=== PATIENT | female | born 1970 | race Hispanic/Latino ===

== ENCOUNTER 2022-06-01 10:28 | Outpatient (CLI) | payer BC ==
[~2022-06-01 10:28] MED LIST: Iopamidol 370 76% 100 ML VIAL ONE
== END 2022-06-01 10:29 | disposition home or self-care (01) ==
LOC: BICCT 10:28
PROVIDERS: ATTEND Physician Assistant Medical
DX: K58.1 Irritable bowel syndrome with constipation (principal); R10.9 Unspecified abdominal pain; N13.30 Unspecified hydronephrosis; N28.9 Disorder of kidney and ureter, unspecified; N83.202 Unspecified ovarian cyst, left side
CPT/HCPCS: 74177; Q9967

== ENCOUNTER 2022-11-09 13:13 | Outpatient (CLI) | payer BC ==
[2022-11-09 15:06] LABS: #Eosinphils 0.2 10x3/uL (0.0-0.5); #Monocytes 0.3 10x3/uL (0.0-1.1); #Neutrophils 3.1 10x3/uL (1.5-8.4); %Basophils 0.7 % (0.0-2.0); %Eosinophils 3.4 % (0.0-6.0); %Lymphocytes 35.7 % (18.0-47.0); %Monocytes 5.2 % (0.0-10.0); %Neutrophils 54.5 % (40.0-75.0); Mean Corpuscular HGB CONC 32.7 g/dL (32.0-36.0); Mean Corpuscular Hemoglobin 28.2 pg (27.0-33.0); Mean Corpuscular Volume 86.4 fl (81.6-98.3); Mean Platelet Volume 10.9 fl (7.4-10.4); Platelet Count 252 10x3/uL (150-450); RBC Distribution Width 14.1 % (11.5-14.5); Red Blood Cell (RBC) Count 4.25 10x6/uL (3.90-5.03); White Blood Cell (WBC) Count 5.6 10x3/uL (3.5-10.5)
[2022-11-09 15:36] LABS: ALT (SGPT) 20 U/L (8-55); AST (SGOT) 21 U/L (5-34); Albumin 4.2 g/dL (3.5-5.0); Alkaline Phosphatase 74 U/L (40-110); Anion Gap 13 mmol/L (10-20); BUN (Urea Nitrogen) 15 mg/dL (9.8-20.1); Bilirubin, Total 0.3 mg/dL (0.2-1.2); Calc. Creatinine Clearance 0 mL/min (70-130); Calcium 8.8 mg/dL (7.8-10.44); Carbon Dioxide 27 mmol/L (22-29); Chloride 104 mmol/L (98-107); Estimated GFR 104; Glucose 102 mg/dL (70-105); Potassium 3.7 mmol/L (3.5-5.1); Protein, Total 7.2 g/dL (6.0-8.3); Sodium 140 mmol/L (136-145)
== END 2022-11-09 13:14 | disposition home or self-care (01) ==
LOC: LABBT 13:13
PROVIDERS: ATTEND Surgery
DX: Z01.818 Encounter for other preprocedural examination (principal); K64.9 Unspecified hemorrhoids
CPT/HCPCS: 80053; 85025; 93005; 93010

== ENCOUNTER 2022-11-14 07:30 | Day surgery (SDC) | payer BC ==
[2022-11-11 14:05] VITALS: BMI 26.9
[2022-11-14] MEDS ORDERED: Bupivacaine/Epinephrine 0.25% 30 ML VIAL ONE (10:30)
[2022-11-14] MEDS ORDERED: SUGAMMADEX SODIUM 200 MG/2 ML VIAL ONE (10:36)
[2022-11-14] MEDS ORDERED: Sodium Chloride 0.9% 100 ML ONE (10:36)
[2022-11-14] MEDS ORDERED: Fentanyl 250 MCG/5 ML VIAL ONE (10:36)
[2022-11-14] MEDS ORDERED: CEFAZOLIN 2 GM VIAL ONE (10:36)
[2022-11-14] MEDS ORDERED: Rocuronium Bromide 10 MG/ML (10ML VIAL) ONE (10:50)
[2022-11-14] MEDS ORDERED: Ketorolac Tromethamine 30 MG/ML VIAL ONE (10:50)
[2022-11-14] MEDS ORDERED: PROPOFOL 200 MG/20 ML VIAL ONE (10:50)
[2022-11-14] MEDS ORDERED: Dexamethasone 20 MG/5 ML VIAL ONE (10:50)
[2022-11-14] MEDS ORDERED: Ondansetron PF 4 MG/2 ML Vial ONE (10:50)
[2022-11-14] MEDS ORDERED: Lidocaine 1% PF 5 ML VIAL ONE (10:50)
[2022-11-14] MEDS ORDERED: Bacitracin Zinc Ointment 30 gm TUBE ONE (11:21)
[2022-11-14] MEDS ORDERED: Fentanyl 100 MCG/2 ML VIAL ONE (11:53)
[2022-11-14] MEDS ORDERED: HYDROmorphone 0.5 MG/0.5 ML SYRINGE ONE (12:17)
[2022-11-14] MEDS ORDERED: Acetaminophen/Codeine 30-300mg Tablet ONE ×2 (13:13→13:14)
== END 2022-11-14 14:00 | disposition home or self-care (01) ==
LOC: SDC 07:30
PROVIDERS: ATTEND Surgery
PROC: 06BY3ZC Excision of Hemorrhoidal Plexus, Percutaneous Approach (ICD-10-PCS; principal; 2022-11-14)
DX: K64.2 Third degree hemorrhoids (principal); Z79.899 Other long term (current) drug therapy; Z88.5 Allergy status to narcotic agent
CPT/HCPCS: 88304; J1100; J1170; J1885; J2405; J2704; J3010; J3490

== ENCOUNTER 2023-03-09 09:58 | Outpatient (CLI) | payer BC | END 2023-03-09 09:59 | disposition home or self-care (01) | LOC: BICMAMMO 09:58 | PROVIDERS: ATTEND Family Medicine | DX: Z12.31 Encounter for screening mammogram for malignant neoplasm of breast (principal); Z98.82 Breast implant status | CPT/HCPCS: 77063; 77067 ==